=== PATIENT | female | born 1990 | race Caucasian/White ===

== ENCOUNTER 2016-07-22 13:43 | Emergency (ER) ==
[2016-07-22 13:49] VITALS: BP 120/56
--- NOTE | 2016-07-22 14:17 | PROVIDER DOCUMENTATION ---
HPI-Rash/Wound/ReCheck - General Source: patient - History of Present Illness-Dermatology Location: reports: genitalia (right groin) Quality: reports: painful Severity: reports: mild Onset/Duration: reports: gradual, 1 week ago Timing: reports: still present, constant Context/Associated Symptoms: reports: abscess. denies: fever, swelling/mass/ lumps, tingling Locality of Occurance: Home Similar Symptoms Previously?: No Recently seen or treated by another doctor?: No <Juan Mejia - Last Filed: 07/22/16 14:12> <Amarjit So - Last Filed: 07/22/16 14:30> - General Chief Complaint: Abscess Stated Complaint: ABSCESS/PVT AREA Time Seen by Provider: 07/22/16 13:49 Allergies/Adverse Reactions: Allergies Allergy/AdvReac Type Severity Reaction Status Date / Time No Known Allergies Allergy Verified 07/22/16 13:58 Home Medications: Home Medication List Medication Instructions Recorded Confirmed Last Taken Type Clindamycin [Cleocin] 150 mg PO Q6HR #30 capsule 07/22/16 Unknown Rx Mupirocin Ointment [Bactroban 1 applicatn TOP TID #1 tube 07/22/16 Unknown Rx Ointment] - History of Present Illness-Dermatology Nature of Presenting Problem: patient is a 26 y/o F that presents with abscess to right groin x 1 week. denies fever/chills, drainage. (Juan Mejia) Review of Systems - Adult - REVIEW OF SYSTEMS - ADULT Constitutional: denies: chills, fever Eyes: denies: decreased vision, blurred vision, double vision Ears, Nose, Mouth & Throat: denies: ear pain, sinus problem, throat pain, throat swelling Cardiovascular: denies: chest pain, palpitations, syncope Respiratory: denies: cough, shortness of breath, wheezing Gastrointestinal: denies: abdominal pain, diarrhea, nausea, vomiting Genitourinary: reports: no symptoms reported Musculoskeletal: denies: bone pain, back pain, joint pain, neck pain Integumentary: reports: see HPI Neurological: reports: no symptoms reported Psychiatric: reports: no symptoms reported Endocrine: reports: no symptoms reported Hematologic/Lymphatic: reports: no symptoms reported Allergic/Immunologic: reports: no symptoms reported All Other Systems: Reviewed and Negative <Juan Mejia - Last Filed: 07/22/16 14:12> Past History - Adult - PAST MEDICAL HISTORY-ADULT Review of Records: reports: Old Records Reviewed, Nursing Assessment Review, Medications Reviewed Major Childhood Illnesses: reports: denies history Neurological: reports: Seizures/Epilepsy Psychiatric: reports: anxiety - PRIOR SURGERIES/PROCEDURES Surgical/Procedure History: reports: reviewed, not pertinent - IMMUNIZATION STATUS Childhood Immunizations: See Nurse Assessment Flu Vaccine: See Nurse Assessment - FAMILY HISTORY Family History: reviewed, not pertinent - SOCIAL HISTORY Smoking: cigarettes, less than 1 pack/day Living Situation: family <Juan Mjeia - Last Filed: 07/22/16 14:12> Physical Exam-General - PHYSICAL EXAM-ADULT Initial Vital Signs Reviewed: Yes - CONSTITUTIONAL General Appearance: alert, no apparent distress - EYES Eyes: PERRL/EOMI, pink conjunctivae - HEAD, EARS, NOSE, MOUTH & THROAT HENMT: normocephalic/atraumatic, moist mucous membranes, normal ENT inspection - NECK Neck: full range of motion, normal inspection. negative: lymphadenopathy - RESPIRATORY Respiratory: lungs clear, normal breath sounds, no respiratory distress, no accessory muscle use - CARDIOVASCULAR Cardiovascular: regular rate, rhythm, no edema, no murmur - GASTROINTESTINAL (ABDOMEN) Abdominal Exam: normal bowel sounds, non tender, soft - MUSCULOSKELETAL Extremity: normal range of motion, normal gait, normal inspection - SKIN Integumentary: warm/dry, other (abscess noted to right groin) - NEUROLOGIC Neurologic: grossly normal, no motor/sensory deficits - PSYCHIATRIC Psych/Mental Status: normal mood/affect, normal thought content, normal thought process, oriented x 3 <Juan Mejia - Last Filed: 07/22/16 14:12> Progress <Juan Mejia - Last Filed: 07/22/16 14:12> <Amarjit So - Last Filed: 07/22/16 14:30> - PLAN OF CARE/RESULTS Progress/Plan/Lab Results: patient request to try antibiotics orally, does not want I and D (Juan Mejia) Vital Signs Temp Pulse Resp BP Pulse Ox 07/22/16 13:46 98.7 F 81 18 120/56 100 No Known Allergies Allergy (Verified 07/22/16 13:58) No Home Medications 05/08/13 Pt does not want I&D at this time. Wants to try outpt antibiotics first. Will d/ c home. (Amarjit So) Departure <Juan Mejia - Last Filed: 07/22/16 14:12> - Departure Time of Disposition Order: 14:27 Certified Medical Emergency: Urgent <Amarjit So - Last Filed: 07/22/16 14:30> - Departure DIAGNOSIS: Abscess Disposition: HOME 01 Condition: Good Additional Instructions: Take medication as prescribed. Keep area clean and dry. Follow up with your primary care provider. ED Follow Up Instructions: You have been treated by a care provider in the Emergency Department. These instructions are being provided to you so you can have an understanding of how to care for yourself upon discharge. Upon discharge from the Emergency Department, you are responsible for making arrangements for follow-up care by a physician of your choice. Take all prescribed medications as directed. Return to the Emergency Department immediately for any new or worsening symptoms. You may call the Physician Referral phone number at [phone] to obtain a list of Physicians who are taking new patients. Prescriptions: Mupirocin Ointment [Bactroban Ointment] 1 applicatn TOP TID #1 tube Clindamycin [Cleocin] 150 mg PO Q6HR #30 capsule Attestation - Scribe Verification/Attestation Scribe:: Juan Mejia Acting as Scribe for:: Amarjit So Scribe documention review:: This chart was documented by a scribe and accurately reflects the service the provider performed and the decisions made by the provider. - Physician/ CALLY Attestation Patient care was provided by Advanced Practice Provider:: Yes Advanced Practice Provider:: Amarjit So Advanced Practice Provider documentation review:: The Mid-level provider documentation, treatment plan and medical decision making was reviewed by the physician who agrees with all treatment and medical decision making by the P. <Juan Mejia - Last Filed: 07/22/16 14:12> - Physician/ CALLY Attestation Patient care was provided by Advanced Practice Provider:: Yes Advanced Practice Provider:: Amarjit So Advanced Practice Provider documentation review:: The Mid-level provider documentation, treatment plan and medical decision making was reviewed by the physician who agrees with all treatment and medical decision making by the MLP. <Amarjit So - Last Filed: 07/22/16 14:30> Physician Attestation - Physician Attestation I, the provider, attest to the following statement:: Amarjit So Physician documentation Attestation:: This documentation recorded by the scribe accurately reflects the service I personally performed and the decisions made by me. <Juan Mejia - Last Filed: 07/22/16 14:12>
== END 2016-07-22 14:40 | disposition home or self-care (01) ==
LOC: ED 13:43
DX: L02.214 Cutaneous abscess of groin (principal); R56.9 Unspecified convulsions; F41.9 Anxiety disorder, unspecified; F17.210 Nicotine dependence, cigarettes, uncomplicated
CPT/HCPCS: 99282